=== PATIENT | female | born 2005 | race Hispanic/Latino ===

== ENCOUNTER → 2025-06-13 | Outpatient (CLI) | payer OTHER ==
--- NOTE | 2025-06-13 22:19 | HMCIMG ---
Examination Hepatobiliary study History Unsp. Abdominal Pain (Hx) / Unsp. Abdominal Pain, Static Images (DICOM Hx) (DICOM Hx) Technique [id number] mebrofenin were administered intravenously followed by acquisition of planar images of the abdomen. Findings Following administration of radiotracer, there is prompt appearance of normal hepatic contours, followed by appearance of activity in unremarkable appearing bile ducts. There is nonvisualization of the gallbladder at the conclusion of the examination suggesting acute cholecystitis. IMPRESSION: 1. Nonvisualization of the gallbladder suggesting acute cholecystitis. /[place]
== END | disposition home or self-care (01) ==
LOC: RAH 07:06
PROVIDERS: ATTEND Internal Medicine
DX: R10.9 Unspecified abdominal pain (principal); R11.0 Nausea
CPT/HCPCS: 78226; A9537